=== PATIENT | male | born 1980 | race Two or more races ===

== ENCOUNTER 2020-05-13 22:11 | Emergency (ER) | payer SELFPAY ==
[~2020-05-13] VITALS: Ht 175.3 cm; Wt 62.1 kg
--- NOTE | 2020-05-13 22:25 | NUR ---
PT BIB [facility] WITH A C/O WITNESSED SEIZURE. PT WAS HAVING AN MRI FOR HIS KNEE WHEN HE HAD A SEIZURE. PT WAS TRIAGED AND TAKEN TO ER 4. SR UP X2 AND PADDED-SEIZURE PRECAUTIONS.
[2020-05-13] MEDS ORDERED: LEVETIRACETAM (500MG) 500 MG in IV NS 0.9% 100 ML IV ONE (22:30)
[2020-05-13] MEDS ORDERED: IV NS 0.9% 1,000 ML BAG IV ONE (22:30)
[2020-05-13] MEDS ORDERED: LORAZEPAM INJ 2 MG/ML VIAL IVP ONE (22:30)
--- NOTE | 2020-05-13 22:38 | NUR ---
PT IS GOING TO CT VIA [facility]
--- NOTE | 2020-05-13 22:44 | NUR ---
PT RETURNED FROM CT
[2020-05-13] MEDS ORDERED: LEVETIRACETAM (500MG) 500 MG/5 ML VIAL IV ONE (22:51)
[2020-05-13] MEDS ORDERED: LORAZEPAM INJ 2 MG/ML VIAL ONE (22:52)
[2020-05-13 22:53] LABS: BASOPHILS # (AUTO) 0.1 /CMM (0.0-0.2); BASOPHILS % (AUTO) 0.6 % (0.0-2.0); EOSINOPHILS % (AUTO) 2.7 % (0.0-6.0); HEMATOCRIT 41 % (39-51); HEMOGLOBIN 13.8 g/dL (13.5-17.5); LYMPHOCYTES # (AUTO) 2.5 /CMM (0.8-4.8); LYMPHOCYTES % (AUTO) 21.4 % (20.0-44.0); MEAN CORPUSCULAR HGB CONC 33 g/dl (31.0-36.0); MEAN CORPUSCULAR VOLUME 93 fL (80-96); MONOCYTES % (AUTO) 8.3 % (2.0-12.0); NEUTROPHILS # (AUTO) 7.8 /CMM (1.8-8.9); PLATELET COUNT (AUTO) 261 /CMM (150-450); RED BLOOD CELL COUNT(AUTO) 4.43 MIL/uL (4.5-6.0); WHITE BLOOD COUNT (AUTO) 11.6 K/uL (4.3-11.0)
--- NOTE | 2020-05-13 23:15 | NUR ---
PT REC'D SEIZURE MEDICATION ORDERED.
[2020-05-13 23:37] LABS: ALANINE AMINOTRANSFERASE 27 U/L (12-78); ALBUMIN 3.8 g/dL (3.4-5.0); ALCOHOL, BLOOD < 3 mg/dL (0-0); ALKALINE PHOSPHATASE 70 U/L (46-116); ASPARTATE AMINOTRANSFERASE 31 U/L (15-37); BILIRUBIN,DIRECT 0.1 mg/dL (0.0-0.2); BILIRUBIN,TOTAL 0.2 mg/dL (0.2-1.0); CALCIUM, SERUM 8.1 mg/dL (8.5-10.1); CARBON DIOXIDE 27 mmol/L (21-32); CHLORIDE 103 mmol/L (98-107); CREATININE 1.2 mg/dL (0.6-1.3); GLUCOSE 100 mg/dL (74-106); POTASSIUM 4.1 mmol/L (3.5-5.1); SODIUM SERUM 138 mmol/L (136-145); TOTAL PROTEIN, SERUM 6.6 g/dL (6.4-8.2); UREA NITROGEN, BLOOD 18 mg/dL (7-18)
--- NOTE | 2020-05-14 01:09 | NUR ---
PT APPEARS TO BE SLEEPING SOUNDLY. NO S/S OF PAIN OR DISTRESS. PT IS STILL TOO SLEEPY TO SEND HOME.
[2020-05-14] MEDS ORDERED: ACETAMINOPHEN ES 500 MG TABLET ONE (03:40)
--- NOTE | 2020-05-14 03:46 | NUR ---
IV removed. Catheter intact and site benign. Pressure and 4x4 applied to site. No bleeding noted.
--- NOTE | 2020-05-14 03:46 | NUR ---
PT C/O HEADACHE. PT REFUSED TYLENOL. TYLENOL WAS WASTED.
--- NOTE | 2020-05-14 03:46 | NUR ---
Patient discharged to home in stable condition. Written and verbal after care instructions given. Patient verbalizes understanding of instruction. PT IS CALLING AN UBER TO TAKE HIM HOME. PT AMBULATED OUT WITH A STEADY GAIT. VSS.
[2020-05-14 03:48] VITALS: BP 119/55
[2020-05-14] MEDS ORDERED: ACETAMINOPHEN ES 500 MG TABLET PO ONE (04:00)
== END 2020-05-14 03:49 | disposition home or self-care (01) ==
LOC: ER 22:13
DX: G40.909 Epilepsy, unspecified, not intractable, without status epilepticus (principal); R94.31 Abnormal electrocardiogram [ECG] [EKG]; Z90.49 Acquired absence of other specified parts of digestive tract; Z90.89 Acquired absence of other organs; Z98.890 Other specified postprocedural states; Z88.8 Allergy status to other drugs, medicaments and biological substances
CPT/HCPCS: 36415; 70450; 80048; 80076; 80307; 85025; 93005; 96365; 96375; 99285; J1953 ×2; J2060; J7030 ×3; G0480